=== PATIENT | male | born 1995 | race Caucasian/White ===

== ENCOUNTER → 2017-06-27 | Outpatient (CLI) | payer OTHER | LOC: FCPNEURO 21:30 | PROVIDERS: ATTEND Psychiatry & Neurology Psychiatry | DX: G47.33 Obstructive sleep apnea (adult) (pediatric) (principal) ==

== ENCOUNTER 2017-07-07 10:08 | Emergency (ER) | payer OTHER ==
--- NOTE | 2017-07-07 10:15 | EDPHY ---
H & P Stated Complaint: "I think I'm having panic attack",ran out of Valium; inconsistent w/meds Time Seen by Provider: 07/07/17 10:14 - Personal History Current Tetanus Diphtheria and Acellular Pertussis (TDAP): Yes Tetanus Vaccine Date: <5 years - Medical/Surgical History Hx Asthma: No Hx Chronic Respiratory Disease: No Hx Diabetes: No Hx Cardiac Disease: No Hx Renal Disease: No Hx Cirrhosis: No Hx Alcoholism: No Hx HIV/AIDS: No Hx Splenectomy or Spleen Trauma: No Other PMH: anxiety,wisdom teeth. depression/anxiety 9 - Social History Smoking Status: Current some day smoker Constitutional: Initial Vital Signs Heart Rate 134 H 07/07/17 10:09 Respiratory Rate 22 H 07/07/17 10:09 Blood Pressure 145/110 H 07/07/17 10:09 O2 Sat (%) 100 07/07/17 10:09 O2 Delivery Mode Room Air Allergies/Adverse Reactions: feathers Allergy (Severe, Verified 07/07/17 10:09) Dyspnea pollen extracts Allergy (Intermediate, Verified 07/07/17 10:09) Itching soy Allergy (Intermediate, Verified 07/07/17 10:09) Itching Home Medications: Medication Instructions Recorded NK [No Known Home Meds] 07/25/15 Medical Decision Making ED Course/Re-evaluation: CHIEF COMPLAINT: "I think I'm having an anxiety attack;" stopped meds, out of Valium HISTORY OF PRESENT ILLNESS: The patient is a 22 y/o male with a history of anxiety arriving with his friend complaining of an anxiety attack since stopping his medications a few days ago. He says, "I've been in a very heightened state of anxiety recently" and has "social anxiety" worsened after a weekend with friends. He is currently transitioning between school and work and feels anxious regarding this. He normally takes Trazodone and Propranolol daily and stopped these medications because, "I've never been great at taking my medications. I don't know what else to say." His friend says there is an additional long-term anxiety medication that he is supposed to take 3-4 times per day and stopped 4 days ago. He also takes Valium for breakthrough events like today, but ran out of this prescription. He last saw his therapist and psychiatrist a few weeks ago. No recent infectious symptoms or trauma. He denies illicit drug use. REVIEW OF SYSTEMS: A 10 point review of systems was performed and is negative with the exception of the elements mentioned in the history of present illness. PHYSICAL EXAM: HR, BP, O2 Sat, RR. Temp noted General Appearance: Alert, well hydrated, appropriate, and anxious-appearing. Head: Atraumatic without scalp tenderness or obvious injury Eyes: Pupils equal, round, reactive to light and accommodation, EOMI, no trauma , no injection. Nose: Atraumatic, no rhinorrhea, clear. Throat: Mucus membranes moist. Neck: Supple Respiratory: No retractions, no distress, no wheezes, and no accessory muscle use. Lungs are clear to auscultation bilaterally. Cardiovascular: Regular rate and rhythm, no murmurs, rubs, or gallops. Good capillary refill all extremities. Gastrointestinal: Abdomen is soft, nontender, non-distended, no masses, no rebound, no guarding, no peritoneal signs. Musculoskeletal: Normal active ROM of all extremities, atraumatic. Neurological: Alert, appropriate, and interactive. The patient has non-focal cranial nerves, motor, sensory, and cerebellar exam. Skin: No rashes, good turgor, no nodules on palpation. Past medical history: Anxiety, depression, insomnia - Trazodone Past surgical history: Garland tooth removal Family history: Noncontributory Social history: Friend at bedside DIFFERENTIAL DIAGNOSIS: The differential diagnosis for the patient's symptoms included but was not limited to panic attack, medication non-compliance, functional and major depression, situational depression, medication side effect , drugs, and alcohol abuse. MEDICAL DECISION MAKING: This is an anxious-appearing 22 y/o male with a history of panic attacks who presents with symptoms that feel the same as prior anxiety attacks. He stopped his antianxiety medications 4 days ago and ran out of his Valium, which is a likely contributor to symptoms today. Doubt ACS. Plan for symptomatic treatment with 10mg PO Valium and 20mg PO Propranolol here. He will be discharged with small script for Valium and strong recommendation to follow up with with psychiatrist this week and to take all preventative medications daily as prescribed. Return precautions discussed. He is comfortable with this plan. Departure - Departure Disposition: Home, Routine, Self-Care Clinical Impression: Anxiety Condition: Good Instructions: Diazepam (By mouth), Anxiety (ED) Additional Instructions: 1. Take all your anti-anxiety medications daily as prescribed. 2. Use Valium as prescribed to manage breakthrough episodes. 3. Follow up with your therapist and/or psychiatrist this week without fail. I recommend calling today or first thing tomorrow morning to schedule this. 4. Increase fluid intake. A mixture of half Gatorade-half water can be a good option for repletion. Referrals: [facility],. [Clinic] - As per Instructions Report Scribed for: Narinder Patterson Report Scribed by: Keya Ortiz Date of Report: 07/07/17 Time of Report: 10:26
[2017-07-07] MEDS ORDERED: DIAZEPAM 5 MG TAB PO ONE (10:25)
[2017-07-07] MEDS ORDERED: DIAZEPAM 5 MG PREPACK#4 BTL TAKEHOME ONE (10:26)
[2017-07-07] MEDS ORDERED: PROPRANOLOL HCL 20 MG TAB PO ONE (10:27)
[2017-07-07 10:52] VITALS: BP 138/85
== END 2017-07-07 10:52 | disposition home or self-care (01) ==
DX: F41.9 Anxiety disorder, unspecified (principal); F17.200 Nicotine dependence, unspecified, uncomplicated